=== PATIENT | female | born 2000 | race Caucasian/White ===

== ENCOUNTER → 2020-08-12 | Outpatient (CLI) | payer OTHER | LOC: KOH-I 10:36 | DX: M25.572 Pain in left ankle and joints of left foot (principal) | CPT/HCPCS: 73610; 73630 ==

== ENCOUNTER → 2020-08-26 | Outpatient (CLI) | payer OTHER | LOC: KOH-I 09:43 | DX: M89.8X7 Other specified disorders of bone, ankle and foot (principal) | CPT/HCPCS: 73610 ==

== ENCOUNTER → 2020-09-23 | Outpatient (CLI) | payer OTHER | LOC: KOH-I 14:28 | DX: S93.492A Sprain of other ligament of left ankle, initial encounter (principal); R93.6 Abnormal findings on diagnostic imaging of limbs | CPT/HCPCS: 73721 ==

== ENCOUNTER → 2020-12-19 | Outpatient (CLI) | payer OTHER | LOC: KOH-I 15:47 | DX: S82.892A Other fracture of left lower leg, initial encounter for closed fracture (principal) | CPT/HCPCS: 73610 ==

== ENCOUNTER → 2021-03-20 | Outpatient (CLI) | payer OTHER | LOC: KOH-I 15:43 | DX: M84.372A Stress fracture, left ankle, initial encounter for fracture (principal) | CPT/HCPCS: 73610 ==